=== PATIENT | female | born 1950 | race Caucasian/White ===

== ENCOUNTER 2016-10-18 10:38 | Day surgery (SDC) | payer MEDICARE, BC ==
--- NOTE | 2016-09-27 11:56 | HP ---
PREOPERATIVE HISTORY AND PHYSICAL: DATE OF OFFICE VISIT: 09/26/16 DATE OF SURGERY: 10/18/16 ATTENDING SURGEON: Shirin Luna MD (DICTATED BY DEBRA HERNANDEZ) PROCEDURE: Right shoulder arthroscopic rotator cuff repair, decompression, and debridement. CHIEF COMPLAINT: Right shoulder pain. HISTORY OF PRESENT ILLNESS: Neelam is a 66-year-old female, who presents to the clinic with right shoulder pain since April due to a massive rotator cuff repair. She has failed conservative measures and therefore agreed to undergo right shoulder arthroscopic rotator cuff repair, decompression, and debridement with Dr. Luna on 10/18/16. PAST MEDICAL HISTORY: History of an [place] in 2010, high cholesterol, depression, anxiety, and GERD. PAST SURGICAL HISTORY: D and C, heel spur and plantar fascia release, pilonidal cyst, cardiac cath with a stent. Denies prior complications with anesthesia. MEDICATIONS: 1. Meloxicam 15 mg take 1 by mouth with food once a day. 2. Metaxalone 800 mg take one 3 times a day as needed. 3. Butalbital, acetaminophen, and caffeine 50/325/40 mg 1 by mouth twice a day as needed for headache, maximum of 2 days a week. 4. Depakote ER 500 mg 1 by mouth every night at bedtime. 5. Sertraline HCl 100 mg 1-1/2 tabs by mouth every day. 6. Atorvastatin calcium 20 mg take 1 by mouth at bedtime. 7. Diazepam 2 mg 1 by mouth twice a day as needed for anxiety. 8. Metoprolol tartrate 25 mg once by mouth twice a day. 9. Nitrostat 0.4 mg 1 sublingual every 5 minutes up to 3 doses as needed. 10. Multivitamins 1 by mouth daily. 11. Aspirin 81 mg 1 by mouth daily. 12. Nystop 100,000 units per g apply twice a day as needed. 13. Oxycodone/acetaminophen 5/325, 1 to 2 tabs every night as needed for pain. ALLERGIES: No known drug allergies. FAMILY HISTORY: Positive for heart disease and cancer. Denies family history or personal history of DVT or PE. SOCIAL HISTORY: The patient is retired. She lives with her spouse. She denies smoking, drug use, or alcohol use. She is right hand dominant. REVIEW OF SYSTEMS: General: Negative for fevers, chills, or night sweats. No known anesthesia problems. HEENT: Negative for headaches, lightheadedness, or syncopal episodes. Integumentary: Negative for abrasions, lesions, or open wounds. Cardiothoracic: Negative chest pain, palpitations, or edema. Positive for history of an [place]. Negative for hypertension. Pulmonary: Negative for shortness of breath with exertion, chronic cough, or COPD. GI: Negative for nausea, vomiting, diarrhea, or constipation. Positive for GERD. : Negative for nocturia, urinary frequency, history of UTIs, or kidney problems. Musculoskeletal: Positive for current complaint. Neuro: Negative for numbness and tingling, history of seizure, stroke, or epilepsy. Endocrine: Negative for diabetes or thyroid issues. Heme: Negative for easy bruising, anemia, excessive bleeding, history of bleeding disorder, history of DVT or PE. Infectious Disease: Negative for history of MRSA. PHYSICAL EXAMINATION GENERAL: A 66-year-old well-developed, well-nourished female, in no acute distress. Alert and oriented x3 with appropriate mood and affect. VITAL SIGNS: Height 65, weight 192, BMI 31.9. Blood pressure 121/72, respiratory rate 16. HEENT: Normocephalic, atraumatic. PERRLA. Throat clear. NECK: Supple. PULMONARY: Lungs are clear to auscultation bilaterally. No wheezing, rhonchi, or rales. CARDIO: Regular rate and rhythm. S1, S2. No murmurs, gallops, or rubs. No edema. ABDOMEN: Positive bowel sounds. Soft, nontender. NEUROLOGIC: Alert and oriented x3. Cranial nerves grossly intact. Sensation is intact to light touch. MUSCULOSKELETAL: Right upper extremity: Skin is intact. No warmth or erythema. Tenderness to palpation over the AC joint, subacromial space, and proximal biceps tendon. Forward flexion to 150 degrees, abduction to 90, passively able to move 10 degrees. Passive range of motion, external rotation to 65, internal rotation to the posterior iliac spine. +4/5 strength in supraspinatus, infraspinatus, and subscapularis testing. Positive Neer, Speed, [place], and [place]. +2 radial pulse, +2 ulnar pulse. Sensation is intact to light touch distally. DIAGNOSTIC STUDIES/LAB DATA: Multiple view x-rays of the right shoulder revealed mild osteoarthritic changes. MRI of the right shoulder revealed AC joint arthritis, fluid in the bicipital groove, mild osteoarthritic changes, full-thickness tear of the supraspinatus tendon with retraction and mild muscle atrophy. Subscapularis appears intact. IMPRESSION: Right shoulder massive rotator cuff tear. PLAN: The patient is scheduled to undergo a right shoulder arthroscopic rotator cuff repair, decompression, and debridement with Dr. Luna on 10/18/16 pending Cardiology and PCP clearance. She will return to the office 10 to 14 days postop for followup and suture removal. Percocet will be used for postop pain management. DEBRA HERNANDEZ [id number]/[facility] #: [id number] MTDD
[~2016-10-18 10:38] MED LIST: Buffered Lidocaine 0.9% SYRIN* 5 ML/SYR SYRINGE INTRADERM ONE; Buffered Lidocaine 0.9% SYRIN* 5 ML/SYR SYRINGE ONE; ceFAZolin 2 GM PREMIX(*) 2 GM/50 ML BAG IVPB ONE
[2016-10-18] MEDS ORDERED: Bupivacaine 0.25% SDV* 30 ML ONE (11:01)
[2016-10-18] MEDS ORDERED: Bupivacaine 0.5% W/EPI SDV* 10 ML VIAL INJ ONE ×2 (11:51)
[2016-10-18] MEDS ORDERED: fentaNYL* 50 MCG/ML 2 ML VIAL (100 MCG VIAL) ONE (11:55)
[2016-10-18] MEDS ORDERED: Midazolam* 1 MG/ML 2 ML VIAL (2 MG) ONE (11:55)
[2016-10-18] MEDS ORDERED: Ondansetron INJ* 2 MG/ML VIAL ONE (13:03)
[2016-10-18] MEDS ORDERED: Lidocaine 2% PF * 5 ML VIAL ONE (13:03)
[2016-10-18] MEDS ORDERED: Succinylcholine* 20 MG/ML 10 ML VIAL ONE (13:03)
[2016-10-18] MEDS ORDERED: Propofol* 10 MG/ML 20 ML BTL IV PUSH ONE (13:03)
[2016-10-18] MEDS ORDERED: Dexamethasone IV* 4 MG/ML 1 ML (4 MG) ONE (13:03)
[2016-10-18] MEDS ORDERED: PROCHLORPERAZINE INJ 5 MG/ML 2 ML VIAL IV PRN (14:23)
[2016-10-18] MEDS ORDERED: Scopolamine 1.5 mg* PATCH TRANSDERM PRN (14:23)
[2016-10-18] MEDS ORDERED: Metoclopramide IV* 5 MG/ML 2 ML VIAL IV PRN (14:23)
[2016-10-18 17:07] VITALS: BP 116/71
--- NOTE | 2016-10-19 11:14 | OP ---
CC: PCP OPERATIVE REPORT: DATE OF OPERATION: 10/18/16 DATE OF : 48 SURGEON: Shirin Luna MD [employer] BLASTING: DEBRA Brooks An review assistant was needed for the entirety of the case to help with positioning, retraction, and was utilized throughout all portions of the case. ANESTHESIOLOGIST: Dr. Gregorio. ANESTHESIA: General with interscalene block. PRE-OP DIAGNOSIS: Right shoulder rotator cuff tear with biceps tendonitis. POST-OP DIAGNOSIS: 1. Right shoulder mild osteoarthritis, complete tear of the supraspinatus tendon with retraction. 2. Biceps tendonitis. 3. Subacromial impingement. OPERATIVE PROCEDURE: Right shoulder arthroscopy with: 1. Extensive glenohumeral debridement including biceps tenotomy [place]ro[place]. c[place] 77954 2. Rotator cuff repair, double row fashion. cpt 17182 3. Subacromial decompression with acromioplasty. cpt 27855 INDICATIONS: Neelam Pink is a 66-year-old female who presented with right shoulder pain that has been going on for at least 6 months. She has failed physical therapy and injection. She had an MRI that demonstrated a full- thickness rotator cuff tear with some retraction as well as bicipital tendonitis and mild osteoarthritis. We discussed the risks and benefits of surgery versus nonoperative treatment. She has elected to proceed with surgery. Risks were discussed including but are not limited to bleeding, infection, damage to nerves, vessels, surrounding structures, wound nonhealing, persistent pain, need for further surgery, scarring, stiffness, persistent pain , incomplete relief of symptoms, risk of anesthesia, risk of DVT. She is elected to proceed. DESCRIPTION OF PROCEDURE: The patient was greeted in the preoperative area by the attending surgeon and the correct extremity was marked and consent was confirmed. The patient then underwent interscalene nerve block, which she tolerated without difficulty. The patient was then brought back to the operating suite where she was placed in supine position on the operating table. She then underwent general anesthesia with endotracheal intubation after which the patient was gently placed in left lateral decubitus position with all bony prominences padded. She was supported with the pegboard. The right arm was placed in traction unsterilely with 10 pounds of traction. The right shoulder was then prepped and draped in the usual sterile fashion beginning with prescrub of chlorhexidine soap and alcohol wipe and a final prep of ChloraPrep. After appropriate surgical pause indicating side, site and procedure, administration of antibiotics, a standard posterolateral was made with the 11 blade. A scope was introduced to the joint and the joint was examined. There was full thickness tear of the supraspinatus tendon. There were grade 1 to 2 changes of the humerus with mild fraying. The anterior, posterior, and superior labrum were frayed with tearing. Biceps had evidence of tendinosis and tendonitis and was somewhat subluxed. It was able to be mobilized after subluxing. The anterior portal was made in outside in fashion. The shaver was used to debride back the unstable chondral flaps as well as the anterior, posterior, superior labrum. The biceps was then tenotomized. The subscap was identified and found to have mild undersurface tearing, but otherwise it was fully intact. Once the tenotomy and debridement was completed, attention was directed to subacromial space. The scope was repositioned to subacromial space. Lateral portal was made in an outside in fashion. The shaver was used to do bursectomy and remove the excess bursal tissue. The undersurface of the acromion was then skeletonized. On the acromion there is a large irregular spur with calcifications in the CA ligament that was identified. Then the arthroscopic eileen was then used to do an acromioplasty to remove the very large sloping spur. All loose fluid and debris was removed. At this point, attention was directed to the rotator cuff. There was a full thickness U-shaped tear with retraction. The tendon quality appeared to be okay but it was a full thickness tear with retraction, approximately 2 cm of retraction. The shaver was used to debride the rotator cuff. The shaver, the rasp, and electrocautery device were used to prepare the greater tuberosity. Once this was complete and a good bony bleeding bed was established, two 4.75 Helicoil were then placed along the medial row. The sutures were then passed through the tendon in a horizontal mattress configuration. These were then tied down one strand from each knot. One suture limb was then cut and then passed through a second knot with anchor for lateral row fixation. It was felt to reapproximate the cuff. Final images were obtained. All fluid and debris was removed from the joint. The portals were closed with 3-0 nylon. Sterile dressings were applied and Cryo/Cuff as well as an UltraSling. She was then awoken from anesthesia and transferred to the PACU in stable condition. POSTOPERATIVE PLAN: She will be nonweightbearing and be in the sling for 6 weeks. She will be discharged on pain medication. DVT prophylaxis was considered but deferred due to no previous personal or family history. I will see the patient back in 10 to 14 days. She will be allowed elbow, hand, and wrist range of motion as well as gentle pendulum exercises. [id number]/[facility] #: [id number] DILLAND
== END 2016-10-18 17:54 | disposition home or self-care (01) ==
LOC: OR 10:38
PROVIDERS: ATTEND Orthopaedic Surgery
DX: M75.121 Complete rotator cuff tear or rupture of right shoulder, not specified as traumatic (principal); M75.21 Bicipital tendinitis, right shoulder; M75.41 Impingement syndrome of right shoulder; I10 Essential (primary) hypertension; M54.2 Cervicalgia
CPT/HCPCS: C1713; J0330; J0690; J1100; J2250; J2405; J2704; J3010

== ENCOUNTER 2018-09-16 07:09 | Day surgery (SDC) | payer MEDICARE, BC ==
[~2018-09-16 07:09] MED LIST changes: -Buffered Lidocaine 0.9% SYRIN* 5 ML/SYR SYRINGE INTRADERM ONE; -Buffered Lidocaine 0.9% SYRIN* 5 ML/SYR SYRINGE ONE; +Buffered Lidocaine 1% SYRIN* 1 ML/SYRINGE INTRADERM ONE; +Lactated Ringers 1000 ML Bag* 1,000 ML IV SCH; -ceFAZolin 2 GM PREMIX(*) 2 GM/50 ML BAG IVPB ONE
[2018-09-16] MEDS ORDERED: Heparin VIAL(*) 5000 UNITS/ML VIAL (FIVE THOUSAND) ONE (07:23)
[2018-09-16] MEDS ORDERED: Buffered Lidocaine 1% SYRIN* 1 ML/SYRINGE INTRADERM ONE (07:23)
[2018-09-16] MEDS ORDERED: ceFAZolin 2 GM in NS PREMIX(*) 2 GM/100 ML BAG IVPB ONE (07:23)
[2018-09-16] MEDS ORDERED: Lidocaine 2.5%/Prilocain 2.5%* 5 GM TUBE ONE (07:23)
[2018-09-16] MEDS ORDERED: Methylene Blue 0.5 %* 50 MG/10 ML AMP IV ONE (11:48)
[2018-09-16] MEDS ORDERED: Propofol* 10 MG/ML 20 ML BTL ONE (11:48)
[2018-09-16] MEDS ORDERED: Lidocaine 1% w EPI 1:100,000* 30 ML VIAL ONE ×2 (11:49→12:34)
[2018-09-16] MEDS ORDERED: Midazolam* 1 MG/ML 2 ML VIAL (2 MG) ONE (11:49)
[2018-09-16] MEDS ORDERED: fentaNYL* 50 MCG/ML 2 ML VIAL (100 MCG VIAL) ONE (11:49)
[2018-09-16] MEDS ORDERED: Bupivacaine 0.25% W/EPI* 10 ML SDV ONE (11:49)
[2018-09-16] MEDS ORDERED: Rocuronium* 10 MG/ML VIAL ONE (11:49)
[2018-09-16] MEDS ORDERED: Dexamethasone IV* 4 MG/ML 1 ML (4 MG) ONE (12:50)
[2018-09-16] MEDS ORDERED: Ondansetron INJ* 2 MG/ML VIAL ONE (13:16)
[2018-09-16] MEDS ORDERED: fentaNYL* 50 MCG/ML 2 ML VIAL (100 MCG VIAL) IV PRN (13:20)
[2018-09-16] MEDS ORDERED: Naloxone* 0.4 MG/ML 1 ML VIAL IV PRN (13:20)
[2018-09-16] MEDS ORDERED: oxyCODONE/Acetamin 5/325 MG* TAB PO PRN (13:20)
[2018-09-16] MEDS ORDERED: Ondansetron INJ* 2 MG/ML VIAL IV PRN (13:20)
[2018-09-16] MEDS ORDERED: DiMENhydriNATE IV* 50 MG/ML VIAL IV PUSH PRN (13:20)
[2018-09-16 14:29] VITALS: BP 127/63
== END 2018-09-16 15:07 | disposition home or self-care (01) ==
LOC: OR 07:09
PROVIDERS: ATTEND Plastic Surgery
DX: C43.4 Malignant melanoma of scalp and neck (principal); I25.10 Atherosclerotic heart disease of native coronary artery without angina pectoris; Z95.5 Presence of coronary angioplasty implant and graft; I10 Essential (primary) hypertension; I25.2 Old myocardial infarction; E78.5 Hyperlipidemia, unspecified
CPT/HCPCS: 78195; 88305; 88307; 88341; 88342; A9270-GY; A9541; C1776; J0690; J1100; J1644; J2250; J2405; J2704; J3010